=== PATIENT | female | born 1955 | race Caucasian/White ===

== ENCOUNTER 2021-06-09 07:56 | Outpatient (CLI) | payer MEDICARE, SELFPAY ==
--- NOTE | ~2021-06-09 | MM_ITS ---
EXAMINATION: MM screening [facility] BI w john HISTORY: Screening mammogram TECHNIQUE: Craniocaudal and mediolateral oblique 3-D tomosynthesis images were obtained and synthetic 2-D images were generated. CAD analysis was submitted and interpreted. COMPARISON: 07/21/2018, 07/09/2017 BREAST PARENCHYMAL COMPOSITION: There are scattered areas of fibroglandular density. FINDINGS: There is no suspicious mass, calcification, or architectural distortion to suggest malignan cy in either breast. There has been no suspicious interval change. IMPRESSION: 1. No mammographic evidence of malignancy. 2. Recommend routine screening mammography in one year. BI-RADS Category 1: Negative Reviewed, dictated and finalized at location A.
== END 2021-06-09 07:57 | disposition home or self-care (01) ==
LOC: ANHIMG 07:58
PROVIDERS: PCP Family Medicine; Visit Provider Obstetrics & Gynecology
DX: Z12.31 Encounter for screening mammogram for malignant neoplasm of breast (principal)
CPT/HCPCS: 77063; 77067

== ENCOUNTER 2022-07-31 08:06 | Outpatient (CLI) | payer MEDICARE, SELFPAY ==
--- NOTE | ~2022-07-31 | MM_ITS ---
EXAMINATION: MM screening [facility] BI w john HISTORY: Screening mammogram TECHNIQUE: Craniocaudal and mediolateral oblique 3-D tomosynthesis images were obtained and synthetic 2-D images were generated. CAD analysis was submitted and interpreted. COMPARISON: 06/09/2021, 07/21/2018, 07/28/2017 BREAST PARENCHYMAL COMPOSITION: There are scattered areas of fibroglandular density. FINDINGS: RIGHT BREAST: No suspicious mass, calcification, or architectural distortion are identified to sugges t malignancy. There has been no suspicious interval change. LEFT BREAST: An asymmetry is present in the posterior third of the lower-outer breast 7 cm from the n ipple on the craniocaudal view. IMPRESSION: 1. Left breast asymmetry. 2. Additional mammographic views and possible breast ultrasound are recommended. BI-RADS Category 0: Incomplete: Needs additional imaging evaluation. Reviewed, dictated and finalized at location A. IMPRESSION: 1. Left breast asymmetry. 2. Additional mammographic views and possible breast ultrasound are recommended . BI-RADS Category 0: Incomplete: Needs additional imaging evaluation.
== END 2022-07-31 08:07 | disposition home or self-care (01) ==
PROVIDERS: PCP Family Medicine; Visit Provider Obstetrics & Gynecology
DX: Z12.31 Encounter for screening mammogram for malignant neoplasm of breast (principal); R92.8 Other abnormal and inconclusive findings on diagnostic imaging of breast
CPT/HCPCS: 77063; 77067

== ENCOUNTER 2022-08-23 12:37 | Outpatient (CLI) | payer MEDICARE, SELFPAY ==
--- NOTE | ~2022-08-23 | MMUS_ITS ---
EXAMINATION: MM diagnostic [facility] LT w john, US breast LT complete HISTORY: Left breast mammographic asymmetry in the posterior third of lower outer breast 7 cm from th e nipple on craniocaudal view was reported on 07/31/2022 screening mammogram TECHNIQUE: Additional 3-D tomosynthesis images of the left breast were performed and synthetic 2-D im ages were generated. CAD analysis was submitted and interpreted. High resolution complete left breast ultrasound examination including all 4 quadrants and subareolar area was performed. COMPARISON: 07/31/2022 bilateral screening mammogram FINDINGS: MAMMOGRAPHIC FINDINGS: No suspicious mass or architectural distortion is detected. ULTRASOUND: No suspicious mass or shadowing, cyst or other significant sonographic abnormalities detected in the complete left breast. IMPRESSION: 1. No mammographic evidence of malignancy 2. Routine annual mammographic screening is recommended BI-RADS Category 1: Negative Reviewed, dictated and finalized at location A. IMPRESSION: 1. No mammographic evidence of malignancy 2. Routine annual mammographic screening is recommended BI-RADS Category 1: Negative
== END 2022-08-23 12:38 | disposition home or self-care (01) ==
LOC: ANHIMG 12:38
PROVIDERS: PCP Family Medicine; Visit Provider Obstetrics & Gynecology
DX: R92.8 Other abnormal and inconclusive findings on diagnostic imaging of breast (principal)
CPT/HCPCS: 76641; 77061; 77065; G0279

== ENCOUNTER 2024-05-06 08:33 | Outpatient (CLI) | payer MEDICARE, SELFPAY ==
--- NOTE | ~2024-05-06 | MM_ITS ---
EXAMINATION: MM screening [facility] BI w john HISTORY: Screening mammogram TECHNIQUE: Craniocaudal and mediolateral oblique 3-D tomosynthesis images were obtained and synthetic 2-D images were generated. CAD analysis was submitted and interpreted. COMPARISON: 08/23/2022, 07/31/2022, 06/09/2021, 07/21/2018 BREAST PARENCHYMAL COMPOSITION:Not Dense. There are scattered areas of fibroglandular density. FINDINGS: No suspicious mass, calcification, or architectural distortion are identified in either rodriguez ast to suggest malignancy. There has been no suspicious interval change. IMPRESSION: No mammographic evidence of malignancy. Recommend routine screening mammography in one year. BI-RADS Category 1: Negative Reviewed, dictated and finalized at location . RAM COORDINATOR
--- OUTSIDE RECORDS SUMMARY | 2024-05-06 08:58 | XMS_ITS | Clinical Summary ---
Author Organization [facility] Address [address] [place] [address] Care Team Providers Care Member Services Representative Name Role Phone Nishant Celaya MD Primary Care Provider [phone] Jose Cabrera MD Unavailable [phone] Source Comments [facility],non-owned Affiliates and Associated Physician Practices is amultiple site organization consisting of ambulatory clinics and hospital sitesin [place], [place], [place] and [place]. This disclosure is being madepursuant to the Care Everywhere program and may not contain all information available regarding this patient. Last updated 17.[facility] Allergies No known active allergies Medications * Be aware that medications may not be up to date on this document. Alwaysverify current medications with the patient. Medication Sig Dispensed Refills Start Date End Date Status FLUoxetine (PROZAC) 10 MG capsule fluoxetine 10 mg capsule TK ONE C PO QD Active lisinopril (PRINIVIL; ZESTRIL) 10 MG tablet at bedtime 2 01/22/2019 Active lovastatin (MEVACOR) 10 MG tablet TK 1 T PO QHS 3 11/11/2018 Active metFORMIN ER 24hr (GLUCOPHAGE XR) 500 MG tablet metformin ER 500 mg tablet,extended release 24 hr TAKE 1 TABLET BY MOUTH ONCE A DAY WITH SUPPER TIME GENERIC EQUIVALENT FOR GLUCOPHAGE XR Active metoprolol succinate XL 24hr (TOPROL XL) 50 MG tablet metoprolol succinate ER 50 mg tablet,extended release 24 hr TK 1 T PO ONCE D Active solifenacin (VESICARE) 10 MG tablet solifenacin 10 mg tablet TK 1 T PO D Active multivitamin daily tablet Take 1 tablet by mouth daily with food Active acetaminophen (TYLENOL) 325 MG tablet Take 2 tablets by mouth every 4 hours as needed Maximum allowable Acetaminophen amount = 4 Grams (4000 mg) / 24 hours. 05/29/2019 Active celecoxib (CELEBREX) 200 MG capsule Take 1 capsule by mouth 2 times daily 60 capsule 09/10/2019 Active HYDROcodone-aceta minophen (NORCO) 5-325 MG tablet Take 1 tablet by mouth every 6 hours as needed 28 tablet 09/10/2019 Active estradiol (VIVELLE-DOT) 0.025 MG/24HR patch Resume in 2weeks when ambulate better 09/10/2019 Active Active Problems Problem Noted Date Diagnosed Date Primary osteoarthritis of both knees 03/14/2019 Essential (primary) hypertension 12/23/2014 Overview (06/10/2017): As CV risk factor Generalized anxiety disorder 12/23/2014 Overview (06/10/2017): On Prozac for long time. Sensorineural hearing loss of both ears 07/14/19 14 Tinnitus 07/13/2013 Obesity 05/13/2013 Overview (06/10/2017): As cv risk factor Vitamin D deficiency 05/13/2013 Overview (06/10/2017): Possible cv risk factor Hyperlipidemia 05/13/2013 Overview (06/10/2017): As CV risk factor Sleep apnea 05/13/2013 Overview (06/10/2017): Probable as cv risk factor Cerebral infarction 05/13/2013 Overview (06/10/2017): Probable lacunes on head CT scan Dizziness and giddiness 05/13/2013 Other specified personal ris k factors, not elsewhere classified 05/13/2013 Overview (06/10/2017): As CV risk factor Family History Medical History Relation Name Comments Heart Disease Brother Status: Alive Bleeding Disorders Father Status: D eceased Cancer Mother Status: d Heart Disease Sister Status: Alive Bleeding Disorders Son Status: A live Relation Name Status Comments Brother Father Mother Sister Son Social History Tobacco Use Types Packs/Day Years Used Date Smoking Tobacco: Never Smokeless Tobacco: Never Alcohol Use Standard Drinks/Week Comments No 0 (1 standard drink = 0.6 oz pur e alcohol) Sex and Gender Information Value Date Recorded Sex Assigned at Not on file Gender Identity Not on file Sexual Orientation Not on file Last Filed Vital Signs Vital Sign Reading Time Taken Comments Blood Pressure 140/86 09/10/2019 7:44 AM CDT Pulse 69 09/10/2019 7:44 AM CDT Temperature 36.7 C (98.1 F) 09/10/2019 8:10 AM CDT Respiratory Rate 18 09/10/2019 8:10 AM CDT Oxygen Saturation 100% 09/10/2019 7:44 AM CDT Inhaled Oxygen Concentration - - Weight 101.9 kg (224 lb 9.6 oz) 09/09/2019 8:12 AM CDT Height 165.1 cm (5' 5 ) 09/09/2019 8:12 AM CDT Body Mass Index 37.38 09/09/2019 8:12 AM CDT Plan of Treatment Health Maintenance Due Date Last Done Comments BONE DENSITY TESTING 1955 COLOGUARD (AGES 45-75) - COLON CA SCREENING 1955 COLON MONITORING 1955 COLONOSCOPY - COLON CA SCREENING 1955 CT COLONOGRAPHY - COLON CA SCREENING 1955 Colorectal Cancer Screening 1955 FIT - COLON CA SCREENING 1955 FLEX SIG - COLON CA SCREENING 1955 HEPATITIS C SCREENING 09/21/1973 DTAP/TDAP/TD VACCINES (1 - Tdap) 09/25/1974 PNEUMOCOCCAL VACCINE 50+ (1 of 1 - PCV) 09/25/2005 ZOSTER VACCINE (1 of 2) 09/25/2005 MAMMOGRAM 12/14/2016 12/14/2014 SCREENING FOR DIABETES 09/09/2022 0, 09/10/2019, 09/09/2019, Additional history exists COVID-19 VACCINE (1 - 2023-25 season) 2023 INFLUENZA VACCINE (#1) 2023 DEPRESSION SCREENING 03/11/2024 Respiratory Syncytial Virus (RSV) Vaccine Pt: or over 60 yrs (1 - 1-dose 75+ series) 09/25/2030 HEPATITIS B VACCINE Aged Out No longe r eligible based on patient's age to complete this topic HIB VACCINE Aged Out No longer eligi ble based on patient's age to complete this topic HPV VACCINE Aged Out No longer eligi ble based on patient's age to complete this topic MENINGOCOCCAL (Group B) VACCINE Aged Out No longer eligible based on patient's age to complete this topic MENINGOCOCCAL VACCINE Aged Out No kimberly jacinto eligible based on patient's age to complete this topic Medical Devices Implanted Type Area Kiln Drawer Device Identifier Shelf Expiration Date Model / Serial / Lot Cmnt Bone Djo Srg Cblt 40gm Hvisc Strl Implanted:Qty: 1 on 05/28/2019 by Jose Cabrera MD at [facility] Right: Knee [employer] 12/28/2019 600-15-000 / / [id number] Cmpnt Ptlr 31mm 1 Pg Wire Ascnt Arcm Kn Implanted:Qty: 1 on 05/28/2019 by Jose Cabrera MD at [facility] Right: Knee [employer] 03/29/2024 [id number] / / [id number] Tray Tib 71mm Kn Cocr I Beam Implanted:Qty: 1 on 05/28/2019 by Jose Cabrera MD at [facility] Right: Knee [employer] 01/27/2029 [id number] / / [id number] Cmpnt Fem Kn Rt Cr Cmnt Prm Vngrd Intlk Implanted:Qty: 1 on 05/28/2019 by Jose Cabrera MD at [facility] Right: Knee [employer] 01/27/2029 [id number] / / [id number] Brng [id number] Vngrd Arcm Kn Ant Stab Implanted:Qty: 1 on 05/28/2019 by Jose Cabrera MD at [facility] Right: Knee [employer] 02/27/2024 [id number] / / [id number] Brng [id number] Vngrd Arcm Kn Ant Stab Implanted:Qty: 1 on 09/09/2019 by Jose Cabrera MD at [facility] Left: Knee [employer] 12/23/2023 [id number] / / [id number] Cmpnt Fem Kn Lt Cr Cmnt Prm Vngrd Intlk Implanted:Qty: 1 on 09/09/2019 by Jose Cabrera MD at [facility] Left: Knee [employer] 07/07/2029 [id number] / / [id number] Cmnt Bone Djo Srg Cblt 40gm Hvisc Strl Implanted:Qty: 1 on 09/09/2019 by Jose Cabrera MD at [facility] Left: Knee [employer] 06/24/2020 600-15-000 / / [id number] Tray Tib 71mm Kn Cocr I Beam Implanted:Qty: 1 on 09/09/2019 by Jose aCbrera MD at [facility] Left: Knee [employer] 05/06/2029 [id number] / / [id number] Cmpnt Ptlr 28mm 1 Pg Wire Ascnt Arcm Kn Implanted:Qty: 1 on 09/09/2019 by Jose Cabrera MD at [facility] Left: Knee [employer] 08/17/2024 [id number] / / [id number] Procedures Procedure Name Priority Date/Time Associated Diagnosis Comments BASIC METABOLIC PANEL (CALCIUM TOTAL) Routine 09/10/2019 4:35 AM CDT from Last 3 Months or Most Recently Relevant to Health Maintenance Results * BASIC METABOLIC PANEL (CALCIUM TOTAL) (09/10/2019 4:35 AM CDT) [facility] Glucose 104 70 - 105 mg/dL 09/10/2019 6:22 AM CDT [facility] Sodium 137 136 - 145 mmol/L 09/10/2019 6:22 AM CDT [facility] Potassium 4.5 3.5 - 5.1 mmol/L 09/10/2019 6:22 AM CDT [facility] Chloride 101 98 - 107 mmol/L 09/10/2019 6:22 AM CDT [facility] CO2 25 23 - 31 mmol/L 09/10/2019 6:22 AM CDT [facility] Calcium 8.7 8.4 - 10.4 mg/dL 09/10/2019 6:22 AM CDT [facility] Anion Gap 11 8 - 16 mmol/L 09/10/2019 6:22 AM CDT [facility] BUN 20 9.8 - 20.1 mg/dL 09/10/2019 6:22 AM CDT [facility] Creatinine 0.82 0.57 - 1.11 mg/dL 09/10/2019 6:22 AM CDT [facility] eGFR by MDRD >60 >60 mL/min/1.7 3m2 09/10/2019 6:22 AM CDT [facility] eGFR by MDRD >60 >60 mL/min/1.7 3m2 09/10/2019 6:22 AM CDT [facility] Blood BLOOD SPECIMEN / Unknown Venipuncture / Unknown 09/10/2019 4:35 AM CDT 09/10/2019 5:52 AM CDT Jose Cabrera MD LAB - CHEMISTRY [facility] Organization Address City/State/ZIP Co de Phone Number [facility] [address] [place] [address] from Last 3 Months or Most Recently Relevant to Health Maintenance Advance Directives Documents on File Type Date Recorded Patient [employer] anation Adv Directive/Living Will/POA 06/01/2019 5:48 PM * Full Code (Latest Code Status on File) Date Activated Date Inactivated Comments 09/09/2019 12:26 PM 09/10/2019 12:55 PM * Full Code Date Activated Date Inactivated Comments 05/28/2019 10:33 AM 05/30/2019 1:58 PM Care Teams Member Services Representative Relationship Specialty Start Date End Date Nishant Celaya MD [address] [place] [phone] PCP - General 12/23/12 [place] [id number] [facility] [address] [place] [id number] Orthopedic Surgery 01/27/19
--- OUTSIDE RECORDS SUMMARY | 2024-05-06 08:58 | XMS_ITS | Patient Health Summary ---
Author Organization [facility] Address [address] [place] [address] Care Team Providers Care Roll Slicing Machine Tender Name Role Phone Nishant Celaya MD Primary Care Provider [phone] Jose Cabrera MD Unavailable [phone] Note from [facility] [place]non-owned Affiliates and Associated Physician Practices is amultiple site organization consisting of ambulatory clinics and hospital sitesin [place], [place], [place] and [place]. This disclosure is being madepursuant to the Care Everywhere program and may not contain all information available regarding this patient. Last updated 17.[facility] Allergies No known active allergies Medications * Be aware that medications may not be up to date on this document. Alwaysverify current medications with the patient. * FLUoxetine (PROZAC) 10 MG capsule fluoxetine 10 mg capsule TK ONE C PO QD * lisinopril (PRINIVIL; ZESTRIL) 10 MG tablet(Started 01/22/2019) at bedtime 2 refills left * lovastatin (MEVACOR) 10 MG tablet(Started 11/11/2018) TK 1 T PO QHS 3 refills left * metFORMIN ER 24hr (GLUCOPHAGE XR) 500 MG tablet metformin ER 500 mg tablet,extended release 24 hr TAKE 1 TABLET BY MOUTH ONCE A DAY WITH SUPPER TIME GENERIC EQUIVALENT FOR GLUCOPHAGE XR * metoprolol succinate XL 24hr (TOPROL XL) 50 MG tablet metoprolol succinate ER 50 mg tablet,extended release 24 hr TK 1 T PO ONCE D * solifenacin (VESICARE) 10 MG tablet solifenacin 10 mg tablet TK 1 T PO D * multivitamin daily tablet Take 1 tablet by mouth daily with food * acetaminophen (TYLENOL) 325 MG tablet(Started 05/29/2019) Take 2 tablets by mouth every 4 hours as needed Maximum allowable Acetaminophen amount = 4 Grams (4000 mg) / 24 hours. * celecoxib (CELEBREX) 200 MG capsule(Started 09/10/2019) Take 1 capsule by mouth 2 times daily * HYDROcodone-acetaminophen (NORCO) 5-325 MG tablet(Started 09/10/2019) Take 1 tablet by mouth every 6 hours as needed * estradiol (VIVELLE-DOT) 0.025 MG/24HR patch(Started 09/10/2019) Resume in 2weeks when ambulate better Active Problems Problem Noted Date Diagnosed Date Primary osteoarthritis of both knees 03/14/2019 Essential (primary) hypertension 12/23/2014 Generalized anxiety disorder 12/23/2014 Sensorineural hearing loss of both ears 07/14/19 14 Tinnitus 07/13/2013 Obesity 05/13/2013 Vitamin D deficiency 05/13/2013 Hyperlipidemia 05/13/2013 Sleep apnea 05/13/2013 Cerebral infarction 05/13/2013 Dizziness and giddiness 05/13/2013 Other specified personal ris k factors, not elsewhere classified 05/13/2013 Social History Tobacco Use Types Packs/Day Years [...] Mass Index 37.38 09/09/2019 8:12 AM CDT Medical Devices Implanted Type Area Experimental Welder Device Identifier Shelf Expiration Date Model / Serial / Lot Cmnt Bone Djo Srg Cblt 40gm Hvisc Strl Implanted:Qty: 1 on 05/28/2019 by Jose Cabrera MD at [facility] Right: Knee [employer] 12/28/2019 600-15-000 / / [id number] Cmpnt Ptlr 31mm 1 Pg Wire Ascnt Arcm Kn Implanted:Qty: 1 on 05/28/2019 by Jose Cabrera MD at [facility] Right: Knee [employer] 03/29/2024 [id number] / / [id number] Tray Tib 71mm Kn Cocr I Beam Implanted:Qty: 1 on 05/28/2019 by Jose Cabrera MD at [facility] Right: Knee [employer] 01/27/2029 [id number] / / [id number] Cmpnt Fem Kn Rt Cr Cmnt Prm Vngrd Intlk Implanted:Qty: 1 on 05/28/2019 by Jose Cabrera MD at [facility] Right: Knee [employer] 01/27/2029 [id number] / / [id number] Brng [id number] Vngrd Arcm Kn Ant Stab Implanted:Qty: 1 on 05/28/2019 by Jose Cabrera MD at [facility] Right: Knee [employer] 02/27/2024 [id number] / / [id number] Brng [id number] Vngrd Arcm Kn Ant Stab Implanted:Qty: 1 on 09/09/2019 by Jose Cabrera MD at [facility] Left: Knee [employer] 12/23/2023 [id number] / / [id number] Cmpnt Fem Kn Lt Cr Cmnt Prm Vngrd Intlk Implanted:Qty: 1 on 09/09/2019 by Jose Cabrera MD at [facility] Left: Knee [employer] 07/07/2029 [id number] / / [id number] Cmnt Bone Djo Srg Cblt 40gm Hvisc Strl Implanted:Qty: 1 on 09/09/2019 by Jose Cabrera MD at [facility] Left: Knee [employer] 06/24/2020 600-15-000 / / [id number] Tray Tib 71mm Kn Cocr I Beam Implanted:Qty: 1 on 09/09/2019 by Jose Cabrera MD at [facility] Left: Knee [employer] 05/06/2029 [id number] / / [id number] Cmpnt Ptlr 28mm 1 Pg Wire Ascnt Arcm Kn Implanted:Qty: 1 on 09/09/2019 by Jose Cabrera MD at [facility] Left: Knee [employer] 08/17/2024 [id number] / / [id number] Procedures * XR KNEE LEFT 3VW(Performed 10/22/2019) Performed for Aftercare following left knee joint replacement surgery * GLUCOSE - POINT OF CARE(Performed 09/10/2019) * BASIC METABOLIC PANEL (CALCIUM TOTAL)(Performed 09/10/2019) * HGB HCT PANEL(Performed 09/10/2019) * GLUCOSE - POINT OF CARE(Performed 09/09/2019) * ENDOTRACHEAL TUBE NOTE(Performed 09/09/2019) * ARTHROPLASTY TOTAL KNEE(Performed 09/09/2019) * GLUCOSE - POINT OF CARE(Performed 09/09/2019) * SARS-COV-2 (COVID-19) IN HOUSE(Performed 09/06/2019) Performed for Preoperative examination * HEMOGLOBIN A1C(Performed 08/28/2019) Performed for Preop examination * COMPREHENSIVE METABOLIC PANEL(Performed 08/28/2019) Performed for Preop examination * CBC W AUTO DIFFERENTIAL(Performed 08/28/2019) Performed for Preop examination * XR KNEE RIGHT 3VW(Performed 08/11/2019) Performed for Chronic pain of right knee * GLUCOSE - POINT OF CARE(Performed 05/30/2019) * HGB HCT PANEL(Performed 05/30/2019) * GLUCOSE - POINT OF CARE(Performed 05/29/2019) * GLUCOSE - POINT OF CARE(Performed 05/29/2019) * GLUCOSE - POINT OF CARE(Performed 05/29/2019) * GLUCOSE - POINT OF CARE(Performed 05/29/2019) * HGB HCT PANEL(Performed 05/29/2019) * GLUCOSE - POINT OF CARE(Performed 05/28/2019) * GLUCOSE - POINT OF CARE(Performed 05/28/2019) * GLUCOSE - POINT OF CARE(Performed 05/28/2019) * LARYNGEAL MASK AIRWAY(Performed 05/28/2019) * ARTHROPLASTY TOTAL KNEE(Performed 05/28/2019) * GLUCOSE - POINT OF CARE(Performed 05/28/2019) * EKG 12-LEAD(Performed 04/22/2019) Performed for Preoperative examination * HEMOGLOBIN A1C(Performed 04/22/2019) Performed for Preoperative examination * CBC W AUTO DIFFERENTIAL(Performed 04/22/2019) Performed for Preoperative examination * COMPREHENSIVE METABOLIC PANEL(Performed 04/22/2019) Performed for Preoperative examination * CULTURE MSSA/MRSA(Performed 04/22/2019) Performed for Preoperative examination * XR KNEE BILAT 3VW(Performed 01/27/2019) Performed for Chronic pain of both knees * EKG 12-LEAD(Performed 02/03/2014) * CBC W AUTO DIFFERENTIAL(Performed 06/29/2013) * BLOOD TYPE ABO+ RH PANEL(Performed 06/29/2013) * VON WILLEBRAND FACTOR MULTIMERS(Performed 06/29/2013) * VON WILLEBRAND ANTIGEN(Performed 06/29/2013) * RISTOCETIN COFACTOR (VWF)(Performed 06/29/2013) * FACTOR VIII ASSAY(Performed 06/29/2013) * FIBRINOGEN CLAUSS(Performed 06/29/2013) * PT-INR [facility](Performed 06/29/2013) * PTT [facility](Performed 06/29/2013) * THROMBIN TIME(Performed 06/29/2013) * CBC W AUTO DIFFERENTIAL(Performed 06/29/2013) * MRI ANGIO BRAIN ARTERIAL WO CONT(Performed 05/28/2013) * MRI ANGIO NECK WO CONTRAST(Performed 05/28/2013) * ECHO COMPLETE(Performed 05/13/2013) Results * XR KNEE LEFT 3VW (10/22/2019 3:34 PM CDT) Anatomical Region Laterality Modality Lower Extremity Computed Radiogr aphy Narrative 10/22/2019 3:34 PM CDT Kelli Salguero RT(R) 11/06/2019 5:03 PM See progress notes for results Jose Cabrera MD DIAGNOSTIC IMAGING O RDERABLES * GLUCOSE - POINT OF CARE (09/10/2019 8:12 AM CDT) Only the most recent of12 resultswithin the time period is included. [facility] Glucose WB/POC 99 70 - 106 mg/dL 09/10/2019 8:18 AM CDT [facility] Specimen Type Arterial/C apillary 09/10/2019 8:18 AM CDT [facility] Blood BLOOD SPECIMEN / Unknown 09/10/2019 8:12 AM CDT 09/10/2019 8:18 AM CDT Jose Cabrera MD LAB - POINT OF CARE ORDERABLES Performing Organization Address [facility] de Phone Number [facility] [address] [place] [address] * (ABNORMAL) HGB HCT PANEL (09/10/2019 4:35 AM CDT) Only the most recent of3 resultswithin the time period is included. [facility] Hemoglobin 11.8(L) 12.0 - 15.6 gm/dL 09/10/2019 5:58 AM CDT [facility] Hematocrit 31.9(L) 35.9 - 45.5 % 09/10/2019 5:58 AM CDT [facility] Blood BLOOD SPECIMEN / Unknown Venipuncture / Unknown 09/10/2019 4:35 AM CDT 09/10/2019 5:52 AM CDT Jose Cabrera MD LAB - HEMATOLOGY ORD ERABLES Performing Organization Address City/[facility]/ZIP Co de Phone Number [facility] [id number] [place] [address] * BASIC METABOLIC PANEL (CALCIUM TOTAL) (09/10/2019 4:35 AM CDT) [facility] Glucose 104 70 - 105 mg/dL 09/10/2019 6:22 AM CDT [facility] Sodium 137 136 - 145 mmol/L 09/10/2019 6:22 AM CDT [facility] Potassium 4.5 3.5 - 5.1 mmol/L 09/10/2019 6:22 AM CDT [facility] Chloride 101 98 - 107 mmol/L 09/10/2019 6:22 AM CDT [facility] CO2 25 23 - 31 mmol/L 09/10/2019 6:22 AM CDT [facility] Calcium 8.7 8.4 - 10.4 mg/dL 09/10/2019 6:22 AM CDT [facility] Anion Gap 11 8 - 16 mmol/L 09/10/2019 6:22 AM CDT [facility] BUN 20 9.8 - 20.1 mg/dL 09/10/2019 6:22 AM CDT [facility] Creatinine 0.82 0.57 - 1.11 mg/dL 09/10/2019 6:22 AM CDT [facility] eGFR by MDRD >60 >60 mL/min/1.7 3m2 09/10/2019 6:22 AM CDT [facility] eGFR by MDRD >60 >60 mL/min/1.7 3m2 09/10/2019 6:22 AM CDT [facility] Blood BLOOD SPECIMEN / Unknown Venipuncture / Unknown 09/10/2019 4:35 AM CDT 09/10/2019 5:52 AM CDT Jose Cabrera MD LAB - CHEMISTRY [facility] [place] [facility] [address] [place] [address] * ETT LINE PERFORMABLE (09/09/2019 9:22 AM CDT) Narrative Mehdi Pascual APRN-CRNA - 09/09/2019 9:22 AM CDT Mehdi Pascual APRN-CRNA 09/09/2019 10:31 AM Endotracheal Tube Placement: Patient Location: OR. Intubation Event Date/Time: 09/09/2019 9:02 AM Procedure: intubation ([id number]). Procedure Section: Sedation: under general anesthesia. Indications for Airway Management: anesthesia Procedure pretreatments used? Nursing documentation on the [facility] Procedure Pretreatments (manual): 100% O2 Induction: standard IV Patient Position: sniffing Mask Ventilation: easy. Blade Type: Sixto Blade Size: 4 Laryngoscopy View: grade 1 (full cords) Intubation Adjuncts: stylet and cricoid pressure Tube: endotracheal tube Placement: oral Tube type: cuff - inflated Tube Size (MM): 7 Depth of Insertion (CM): 21 Measured From: lips Cuff volume (mL): 10 Cuff Inflated With: air Number of Attempts: 1. Placement Verified By: direct visualization and CO2 monitor Tube secured with: adhesive tape. Difficult Airway? No. Procedure Start Time: 09/09/2019 9:02 AM. Staff Section Anesthesia Provider: Mehdi Pascual, ADELA-SCAR, Performed the procedure Dorian Claros DO GENERAL ANESTHESIA O ARLETTE * SARS-COV-2 (COVID-19) IN HOUSE (09/06/2019 3:00 PM CDT) COVID-19 PCR Not detected Not detected, Invalid 09/07/2019 11:31 AM CDT [facility] Microbiology SPECIMEN FROM NASOPHARYNGEAL STRUCTURE / Unknown Collection / Unknown 09/06/2019 3:00 PM CDT 09/06/2019 11:23 PM CDT Narrative [facility] - 09/07/2019 11:31 AM CDT This nucleic acid amplification assay performance was validated by [facility]. This test has been authorized by the Food and Drug administration (FDA)under an Emergency Use Authorization (EUA). This test has been validated in accordance with the FDA's guidance document Policy for Diagnostic Testing in Laboratories Certified to perform High Complexity Testing under CLIA prior to Emergency Use Authorization for Coronavirus Disease-2019 during the Public Health Emergency issued on May 09, 2019. FDA independent review of this validation is pending. This test is only authorized for the duration of time the declaration that circumstances exist justifying the authorization of emergency use of in vitro diagnostic tests for detection of SARS-CoV-2 virus and/or diagnosis of COVID-19 infection under section 564(b)(1) of the Act, 21 U.S.C 360bbb-3 (b)(1), unless the authorization is terminated or revoked sooner. Jose Cabrera MD LAB - MICROBIOLOGY O ARLETTE [facility] [address] [place] [address], [facility] [phone] * HEMOGLOBIN A1C (08/28/2019 2:52 PM CDT) Only the most recent of2 resultswithin the time period is included. Hemoglobin A1c 5.5 4.2 - 5.6 % 08/28/2019 3:20 PM CDT [facility] Estimated Average Glucose 111 mg/dL 08/28/2019 3:20 PM CDT [facility] Blood BLOOD SPECIMEN / Unknown Venipuncture / Unknown 08/28/2019 2:52 PM CDT 08/28/2019 3:02 PM CDT Narrative [facility] - 08/28/2019 3:20 PM CDT The following cutoff levels are recommended by [place] [employer]. A1c > 6.5% : considered as diabetes if two separate tests >6.5% or in an appropriate clinical setting. A1c 5.7% - 6.4% : considered as prediabetes (suggest increased risk for diabetes and cardiovascular disease) Control target level: Should be individualized. < 7 for general (non-) , < 8% less stringent goal, < 6.5 more stringent goal. Hemoglobin A1c measurements are used as an aid in the diagnosis of diabetic mellitus, as an aid to identify patients who may be at the risk for developing diabetic mellitus, and for the monitoring long-term blood glucose control in individuals with diabetes mellitus. This test should not replace glucose testing for patients with Type 1 diabetes, pediatric patients, or women. Falsely low HbA1c results may be observed in patients with clinical conditions that shorten erythrocyte life span or decrease mean erythrocyte age such as the presence of unstable hemoglobin variants, elevated hemoglobin F level or other causes of hemolytic anemia . HbA1c may not accurately reflect glycemic control when clinical conditions that affect erythrocyte survival are present. Severe Iron deficiency anemia may yield falsely high results. Hemoglobin A1c assay should not be used to diagnose or monitor diabetes in patients with malignancy, recent blood transfusion, chronic kidney or liver disease. This method may yield falsely low results when hemoglobin (HbF) exceeds 5% in the specimen. Selene Hernandez ACCOUNT DIRECTOR-DIRECTOR OF CHILD WELFARE SERVICES LAB - CHEM ISTRY ORDERABLES [facility] [address] [place] [address] * CBC W AUTO DIFFERENTIAL (08/28/2019 2:52 PM CDT) Only the most recent of4 resultswithin the time period is included. WBC 9.6 4.4 - 10.7 x10E9/L 08/28/2019 3:06 PM CDT [facility] WBC Corrected 08/28/2019 3:06 PM CDT [facility] RBC 4.75 3.80 - 5.20 x10E12/L 08/28/2019 3:06 PM CDT [facility] Hemoglobin 13.4 12.0 - 15.6 gm/dL 08/28/2019 3:06 PM CDT [facility] Hematocrit 41.5 35.9 - 45.5 % 08/28/2019 3:06 PM CDT [facility] MCV 87.4 80.7 - 98.3 fl 08/28/2019 3:06 PM CDT [facility] MCH 28.2 26.7 - 34.0 pg 08/28/2019 3:06 PM CDT [facility] MCHC 32.3 30.8 - 35.9 gm/dL 08/28/2019 3:06 PM CDT [facility] Platelet Count 310 153 - 416 x10E9/L 08/28/2019 3:06 PM CDT [facility] RDW-CV 13.0 12.1 - 14.9 % 08/28/2019 3:06 PM CDT [facility] MPV 9.9 9.4 - 12.9 fl 08/28/2019 3:06 PM CDT [facility] Neutrophils % 65.2 44.0 - 73.0 % 08/28/2019 3:06 PM CDT [facility] Lymphocytes % 22.6 20.0 - 43.0 % 08/28/2019 3:06 PM CDT [facility] Monocytes % 9.7 5.0 - 13.0 % 08/28/2019 3:06 PM CDT [facility] Eosinophils % 1.5 0.0 - 6.0 % 08/28/2019 3:06 PM CDT [facility] Basophils % 0.6 0.0 - 2.0 % 08/28/2019 3:06 PM CDT [facility] Immature Granulocytes 0.4 0 - 1 % 08/28/2019 3:06 PM CDT [facility] Neutrophil Absolute 6.22 2.01 - 7.14 x10E9/L 08/28/2019 3:06 PM CDT [facility] Lymphocytes Absolute 2.16 1.07 - 3.94 x10E9/L 08/28/2019 3:06 PM CDT [facility] Monocytes Absolute 0.93 0.26 - 1.07 x10E9/L 08/28/2019 3:06 PM CDT [facility] Eosinophils Absolute 0.14 0 - 0.47 x10E9/L 08/28/2019 3:06 PM CDT [facility] Basophils Absolute 0.06 0 - 0.08 x10E9/L 08/28/2019 3:06 PM CDT [facility] Immature Granulocytes Absolute 0.04 0.00 - 0.06 x10E9/L 08/28/2019 3:06 PM CDT [facility] nRBC Auto 0 /100 WBC 08/28/2019 3:06 PM CDT [facility] Blood BLOOD SPECIMEN / Unknown Venipuncture / Unknown 08/28/2019 2:52 PM CDT 08/28/2019 3:03 PM CDT Selene Hernandez ACCOUNT DIRECTOR-DIRECTOR OF CHILD WELFARE SERVICES LAB - ZEB TOLOGY ORDERABLES [facility] [address] [place] [address] * (ABNORMAL) COMPREHENSIVE METABOLIC PANEL (08/28/2019 2:52 PM CDT) Only the most recent of2 resultswithin the time period is included. [facility] Glucose 93 70 - 105 mg/dL 08/28/2019 3:22 PM CDT [facility] Sodium 138 136 - 145 mmol/L 08/28/2019 3:22 PM CDT [facility] Potassium 4.1 3.5 - 5.1 mmol/L 08/28/2019 3:22 PM CDT [facility] Chloride 104 98 - 107 mmol/L 08/28/2019 3:22 PM CDT [facility] CO2 28 23 - 31 mmol/L 08/28/2019 3:22 PM CDT [facility] Calcium 9.6 8.4 - 10.4 mg/dL 08/28/2019 3:22 PM CDT [facility] Anion Gap 6(L) 8 - 16 mmol/L 08/28/2019 3:22 PM CDT [facility] BUN 19 9.8 - 20.1 mg/dL 08/28/2019 3:22 PM CDT [facility] Creatinine 0.91 0.57 - 1.11 mg/dL 08/28/2019 3:22 PM CDT [facility] Alkaline Phosphatase 89 40 - 150 U/L 08/28/2019 3:22 PM CDT [facility] ALT 41 0 - 61 U/L 08/28/2019 3:22 PM CDT [facility] AST 28 5 - 34 U/L 08/28/2019 3:22 PM CDT [facility] Protein Total 6.9 6.4 - 8.3 gm/dL 08/28/2019 3:22 PM CDT [facility] Albumin 4.2 3.2 - 4.6 gm/dL 08/28/2019 3:22 PM CDT [facility] Bilirubin Total 0.3 0.2 - 1.0 mg/dL 08/28/2019 3:22 PM CDT [facility] eGFR by MDRD >60 >60 mL/min/1.7 3m2 08/28/2019 3:22 PM CDT [facility] eGFR by MDRD >60 >60 mL/min/1.7 3m2 08/28/2019 3:22 PM CDT [facility] Blood BLOOD SPECIMEN / Unknown Venipuncture / Unknown 08/28/2019 2:52 PM CDT 08/28/2019 3:02 PM CDT Selene Hernandez ACCOUNT DIRECTOR-DIRECTOR OF CHILD WELFARE SERVICES LAB - CHEM ISTRY ORDERABLES [facility] [address] [place] [address] * XR KNEE RIGHT 3VW (08/11/2019 3:43 PM CDT) Anatomical Region Laterality Modality Lower Extremity Computed Radiogr aphy Narrative 08/11/2019 3:41 PM CDT Kelli Salguero, RT(R) 08/14/2019 4:37 PM See progress notes for results Jose Cabrera MD DIAGNOSTIC IMAGING O ARLETTE * LARYNGEAL MASK AIRWAY (05/28/2019 7:52 AM CDT) Narrative Lexy Garcia DO - 05/28/2019 7:52 AM CDT Mehdi Pascual APRN-CRNA 05/28/2019 7:53 AM LMA Placement Procedure/LDA Note: Patient Location: OR. Procedure: LMA. Pretreatment: 100% O2 Induction: standard IV Patient position: supine. Mask Ventilation: not attempted Type: LMA Size: 4 Number of Attempts: 1. Placement verified by: CO2 monitor Staff Section Anesthesia Provider: Mehdi Pascual APRN-CRNA, Performed the procedure Lexy Garcia DO GENERAL ANESTHESIA O GRACIEERACHARLES * EKG 12-LEAD (04/22/2019 9:03 AM CAMP ADVISOR) Only the most recent of2 resultswithin the time period is included. Ventricular Rate 71 BPM [facility] Atrial Rate 71 BPM [facility] P-R Interval 182 ms [facility] QRS Duration ms 102 ms [facility] Q-T Interval ms 396 ms [facility] QTC Calculation (Bezet) 430 ms [facility] Calculated P [place] 55 degrees [facility] Calculated R [place] -11 degrees [facility] Calculated T [place] 32 degrees [facility] Interpretation EKG Normal sinus rhythm Moderate voltage criteria for LVH, may be normal variant Borderline ECG No previous ECGs available Confirmed by LISA VALERA MD ([id number]) on 04/23/2019 12:30:46 PM [facility] 04/22/2019 9:03 AM CAMP ADVISOR 04/23/2019 12:30 PM CAMP ADVISOR Dorian Claros DO ECG ORDERABLES [facility] * CULTURE MSSA/MRSA (04/22/2019 7:45 AM CAMP ADVISOR) Culture Negative for Staphylococcus aureus (MRSA/MSSA) 04/23/2019 11:01 AM CAMP ADVISOR [facility] Microbiology SPECIMEN FROM NASAL FOSSAE / Unknown Collection / Unknown 04/22/2019 7:45 AM CAMP ADVISOR 04/22/2019 7:59 AM CAMP ADVISOR Selene Hernandez APRN-DIRECTOR OF CHILD WELFARE SERVICES LAB - MICR OBIOLOGY ORDERABLES [facility] [address] [place], [place] [address] [phone] * XR KNEE BILAT 3VW (01/27/2019 3:11 PM CAMP ADVISOR) Anatomical Region Laterality Modality Lower Extremity Computed Radiogr aphy Narrative 01/27/2019 3:12 PM CAMP ADVISOR Kelli Salguero, RT(R) 01/28/2019 4:42 PM See progress notes for results Jose Cabrera MD DIAGNOSTIC IMAGING O RDERABLES * PTT [facility] (06/29/2013 9:17 AM CDT) APTT 35.6 23.0 - 38.4 Seconds [facility] Comment:Suggested therapeuti c range for full dose I.V. heparin therapy for venous thromboembolism is 66.0-91.0 seconds. Blood specimen (specimen) BLOOD SPECIMEN / Unknown 06/29/2013 9:17 AM CDT 06/29/2013 9:47 AM CDT [facility] - 06/29/2013 12:35 PM CDT Is patient on Heparin, Argatroban or Dabigatran?->N Karlee Pantoja ACCOUNT DIRECTOR-DIRECTOR OF CHILD WELFARE SERVICES LAB - COAGULATION ORDERABLES [address] [phone] * PT-INR [facility] (06/29/2013 9:17 AM CDT) PT 13.2 12.1 - 14.8 Seconds [facility] INR 1.0 See Comment [facility] Blood specimen (specimen) BLOOD SPECIMEN / Unknown 06/29/2013 9:17 AM CDT 06/29/2013 9:47 AM CDT Narrative [facility] - 06/29/2013 12:35 PM CDT Is patient on Heparin, Argatroban or Dabigatran?->N Karlee Golabe [facility] - CO[facility] ORDERABLES [address] [phone] * FIBRINOGEN CLAUSS (06/29/2013 9:17 AM CDT) Fibrinogen Clauss 392 170 - 400 mg/dL [facility] Blood specimen (specimen) BLOOD SPECIMEN / Unknown 06/29/2013 9:17 AM CDT 06/29/2013 9:47 AM CDT [facility] - COAGULATION ORDERABLES Performing Organization Address [facility] Co de Phone Number [address] [phone] * VON WILLEBRAND FACTOR MULTIMERS (06/29/2013 9:17 AM CDT) Pathologist [facility] von Willebrand Antigen for Multimers Comment [facility] ([place]) Comment: VWF multimer analysis shows a normal pattern and distribution of bands. This is the pattern of multimers that occurs in both normal individuals and those with Type 1 VW Disease as well as in both type 2M and 2N VW disease. No additional results available for further interpretation. Blood specimen (specimen) BLOOD SPECIMEN / Unknown 06/29/2013 9:17 AM CDT 06/29/2013 9:47 AM CDT Narrative [facility] ([place]) - 07/06/2013 7:08 PM CDT Performed at: [facility] [address] [id number] [employer] Bug[employer] Operator: Angela Estrada MD, Phone: [phone] Karlee Adamsabe [facility] - HEMATOLOGY ORDERABLES [place] [facility] * VON WILLEBRAND ANTIGEN (06/29/2013 9:17 AM CDT) von Willebrand Factor Antigen 77 50 - 280 U/dL [facility] Comment: Biologic population variability within the Von Willebrand Factor Antigen reference range is strongly correlated with ABO blood group phenotype. Blood group specific ranges are as follows: BLOOD TYPE O: vWF Antigen = 50-170 BLOOD TYPE A: vWF Antigen = 60-260 BLOOD TYPE B AND AB COMBINED: vWF Antigen = 90-280 Blood specimen (specimen) BLOOD SPECIMEN / Unknown 06/29/2013 9:17 AM CDT 06/29/2013 9:47 AM CDT Karlee Pantoja ACCOUNT DIRECTOR-DIRECTOR OF CHILD WELFARE SERVICES LAB - COAGULATION ORDERABLES [address] [phone] * FACTOR VIII RISTOCETIN COFACTOR (06/29/2013 9:17 AM CDT) Ristocetin Cofactor 69 50 - 210 U/dL [facility] Comment: Biologic population variability within the Ristocetin CoFactor reference range is strongly correlated with ABO blood group phenotype. Blood group specific ranges are as follows: BLOOD TYPE O: Ristocetin CoFactor = 50-162 BLOOD TYPE A: Ristocetin CoFactor = 70-185 BLOOD TYPE B AND AB COMBINED: Ristocetin CoFactor = 80-210 The diagnosis of Von Willebrand Disease (VWD), particularly the milder forms, is difficult because so-called screening tests (Bleeding Time, APTT) are frequently normal. Even the results of more specific tests, such as Factor VIII, VWF-Antigen and Ristocetin Co-Factor Activity, may at times be normal because they are affected by a large number of factors and conditions. These include ABO Blood Group Phenotype, Estrogen-Oral contraceptive use, , use of aspirin and other medications, stress, etc. Thus, the diagnosis of mild VWD cannot be reliably excluded on the basis of a single set of normal results for VWF-Antigen and Ristocetin Co-Factor Activity. If the patient has a personal and/or family history of recurrent abnormal bleeding, comprehensive laboratory evaluation with subtyping should be considered since this has important implications for patient management. Blood specimen (specimen) BLOOD SPECIMEN / Unknown 06/29/2013 9:17 AM CDT 06/29/2013 9:47 AM CDT Karlee Pantoja [facility] - COAGULATION ORDERABLES [address] [phone] * BLOOD TYPE ABO+ RH PANEL (06/29/2013 9:17 AM CDT) Interpretation ABO/Rh Patient O POS [facility] Blood specimen (specimen) BLOOD SPECIMEN / Unknown 06/29/2013 9:17 AM CDT 06/29/2013 10:00 AM CDT Karlee Pantoja [facility] - BLOOD BANK ORDERABLES Performing Organization Address [facility] Co de Phone Number [address] [phone] * FACTOR VIII ASSAY (06/29/2013 9:17 AM CDT) Factor VIII Activity 95 45 - 225 U/dL [facility] Comment: Biologic population variability within the Factor VIII Activity reference range is strongly correlated with ABO blood group phenotype. Blood group specific ranges are as follows: BLOOD TYPE O: Factor VIII = 45-180 BLOOD TYPE A: Factor VIII = 60-200 BLOOD TYPE B AND AB COMBINED: Factor VIII = 80-225 Blood specimen (specimen) BLOOD SPECIMEN / Unknown 06/29/2013 9:17 AM CDT 06/29/2013 9:47 AM CDT Narrative [facility] - 06/29/2013 12:54 PM CDT Is this a pre or post-infusion?->NA Karlee Pantoja [facility] - COAGULATION ORDERABLES Performing Organization Address [facility]/ZIP Co de Phone Number [address] [phone] * THROMBIN TIME (06/29/2013 9:17 AM CDT) Pathologist [facility] Thrombin Time 15.9 12.8 - 19.2 Seconds [facility] Blood specimen (specimen) BLOOD SPECIMEN / Unknown 06/29/2013 9:17 AM CDT 06/29/2013 9:47 AM CDT Karlee Pantoja ACCOUNT DIRECTOR-DIRECTOR OF CHILD WELFARE SERVICES LAB - COAGULATION ORDERABLES [facility] [address] [place] [address] * MRI ANGIO BRAIN ARTERIAL WO CONT (05/28/2013 12:06 PM CDT) Anatomical Region Laterality Modality Head Other Impressions 05/28/2013 1:30 PM CDT IMPRESSION: 1. Normal MR angiogram of the [place]. 2. Essentially normal MR angiogram of the neck allowing for motion artifact. This report was approved by Keke Carbajal M.D. on 05/28/2013 1:11 PM . I, Dr. DREA OLIVER M.D. have personally reviewed and interpreted this examination/study. This report was electronically signed by DREA OLIVER M.D. on 05/28/2013 1:30 PM . Narrative 05/28/2013 1:30 PM CDT EXAMINATION: 1. Magnetic resonance angiography (MRA) of the head without contrast 2. MRA of the neck without contrast HISTORY: Acute attack of vertigo 6-8 months ago. Multiple CV risk factors. 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 FINDINGS: No prior study is available for comparison. Angiographic findings: Images are degraded due to motion artifact. The visualized aortic arch origin of the carotid and vertebral arteries are not included in the qrfgi-gt-sbcj. The innominate artery and both subclavian arteries appear normal. The common carotid arteries and carotid bifurcations appear normal. The cervical internal carotid and vertebral arteries appear normal. The distal internal carotid arteries appear normal. The anterior and middle cerebral arteries appear normal. The distal vertebral arteries appear normal. The basilar artery and posterior cerebral arteries appear normal. No aneurysms or intracranial stenoses are identified. Procedure Note Drea Oliver MD - 06/08/2017 EXAMINATION: 1. Magnetic resonance angiography (MRA) of the head without contrast 2. MRA of the neck without contrast HISTORY: Acute attack of vertigo 6-8 months ago. 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 FINDINGS: No prior study is available for comparison. Angiographic findings: Images are degraded due to motion artifact. The visualized aortic archorigin of the carotid and vertebral arteries are not included in bnqdulhu-yg-ictr. The innominate artery and both subclavian arteries appearnormal. The common carotid arteries and carotid bifurcations appear normal. The cervical internal carotid andvertebral arteries appear normal. The distal internal carotid arteries appear normal. The anterior andmiddle cerebral arteries appear normal. The distal vertebral arteriesappear normal. The basilar artery and posterior cerebral arteries appearnormal. No aneurysms or intracranial stenoses are identified. IMPRESSION IMPRESSION: 1. Normal MR angiogram of the [place]. 2. Essentially normal MR angiogram of the neck allowing for motionartifact. This report was approved by Keke Carbajal M.D. on 05/28/2013 1:[address] DREA Mckee M.D. have personally reviewed and interpreted thisexamination/study. This report was electronically signed by DREA OLIVER M.D. on 05/28/20131:30 PM . Jerald Toussaint MD MR ORDERABLES * MRI ANGIO NECK WO CONTRAST (05/28/2013 12:06 PM CDT) Anatomical Region Laterality Modality Head Other Impressions 05/28/2013 1:30 PM CDT IMPRESSION: 1. Normal MR angiogram of the [place]. 2. Essentially normal MR angiogram of the neck allowing for motion artifact. This report was approved by Keke Carbajal M.D. on 05/28/2013 1:[address] DREA Mckee M.D. have personally reviewed and interpreted this examination/study. This report was electronically signed by DREA OLIVER M.D. on 05/28/2013 1:30 PM . Narrative 05/28/2013 1:30 PM CDT EXAMINATION: 1. Magnetic resonance angiography (MRA) of the head without contrast 2. MRA of the neck without contrast HISTORY: Acute attack of vertigo 6-8 months ago. Multiple CV risk factors. 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 FINDINGS: No prior study is available for comparison. Angiographic findings: Images are degraded due to motion artifact. The visualized aortic arch origin of the carotid and vertebral arteries are not included in the unlzo-lm-ljfi. The innominate artery and both subclavian arteries appear normal. The common carotid arteries and carotid bifurcations appear normal. The cervical internal carotid and vertebral arteries appear normal. The distal internal carotid arteries appear normal. The anterior and middle cerebral arteries appear normal. The distal vertebral arteries appear normal. The basilar artery and posterior cerebral arteries appear normal. No aneurysms or intracranial stenoses are identified. Procedure Note Drea Oliver MD - 06/08/2017 EXAMINATION: 1. Magnetic resonance angiography (MRA) of the head without contrast 2. MRA of the neck without contrast HISTORY: Acute attack of vertigo 6-8 months ago. Multiple CV risk factors.Small vessel strokes reported on outside head CT scan TECHNIQUE: MRA of the hvsbzu-tf-Hygjva and the neck was performed using hyjqz-ee-nbetiu technique without contrast. FINDINGS: No prior study is available for comparison. Angiographic findings: Images are degraded due to motion artifact. The visualized aortic archorigin of the carotid and vertebral arteries are not included in xhzysoby-yn-ngxp. The innominate artery and both subclavian arteries appearnormal. The common carotid arteries and carotid bifurcations appear normal. The cervical internal carotid andvertebral arteries appear normal. The distal internal carotid arteries appear normal. The anterior andmiddle cerebral arteries appear normal. The distal vertebral arteriesappear normal. The basilar artery and posterior cerebral arteries appearnormal. No aneurysms or intracranial stenoses are identified. IMPRESSION IMPRESSION: 1. Normal MR angiogram of the [place]. 2. Essentially normal MR angiogram of the neck allowing for motionartifact. This report was approved by Keke Carbajal M.D. on 05/28/2013 1:11 PM . I, Dr. YIHUA OLIVER, M.D. have personally reviewed and interpreted thisexamination/study. This report was electronically signed by DREA OLIVER M.D. on 05/28/20131:30 PM . Jerald Toussaint MD MR ORDERABLES * ECHO W DOPPLER AND COLOR FLOW (05/13/2013 12:00 AM CAMP ADVISOR) Anatomical Region Laterality Modality Other 05/13/2013 Jerald Toussaint MD ECHOCARDIOGRAPHY RAD IANT Care Teams Roll Slicing Machine Tender Relationship Specialty Start Date End Date Nishant Celaya MD [address] [place] [phone] PCP - General 12/23/12 [place] [id number] [address] Orthopedic Surgery 01/27/19
--- OUTSIDE RECORDS SUMMARY | 2024-05-06 08:58 | XMS_ITS | Referral Summary ---
Author Organization [facility] Address [address] [place] [address] Care Team Providers Care Nanotechnology Technician Name Role Phone Nishant Celaya MD Primary Care Provider [phone] Jose Cabrera MD Unavailable [phone] Source Comments [facility],non-owned Affiliates and Associated Physician Practices is amultiple site organization consisting of ambulatory clinics and hospital sitesin [place], [place], [place] and [place]. This disclosure is being madepursuant to the Care Everywhere program and may not contain all information available regarding this patient. Last updated 17.[facility] Allergies No known active allergies Medications * [...] 05/13/2013 Overview (06/10/2017): As CV risk factor Social History Tobacco Use Types Packs/Day Years [...] Mass Index 37.38 09/09/2019 8:12 AM CDT Functional Status Functional Status Response Date of Assess ment Is person deaf or have serious hearing difficult y? No 09/09/2019 Is person blind or have serious difficulty seein g? No 09/09/2019 Does person have serious dif ficulty walking/climbing stairs? Yes 09/09/2019 Does person have difficulty dressing/bathing? No 09/09/2019 Does person have difficulty doing errands alone? No 09/09/2019 Cognitive Status Response Date of Assessm ent Does person have difficulty concentrating/remembering/making decisions? No 09/09/2019 Plan of Treatment Not on file Medical Devices Implanted Type Area Tape Duplicator Device Identifier Shelf Expiration Date Model / Serial / Lot Cmnt Bone Djo Srg Cblt 40gm Hvisc Strl Implanted:Qty: 1 on 05/28/2019 by Jose Cabrera MD at [facility] Right: Knee [employer] 12/28/2019 600-15-000 / / [id number] Cmpnt Ptlr 31mm 1 Pg Wire Ascnt Arcm Kn Implanted:Qty: 1 on 05/28/2019 by Jose Cabrera MD at [facility] Right: Knee [employer] 03/29/2024 [id number] / / [id number] Tray Tib 71mm Kn Cocr I Beam Implanted:Qty: 1 on 05/28/2019 by Jose Cabrera MD at [facility] Right: Knee [employer] 01/27/2029 [id number] / / [id number] Cmpnt Fem Kn Rt Cr Cmnt Prm Vngrd Intlk Implanted:Qty: 1 on 05/28/2019 by Jose Cabrera MD at [facility] Right: Knee [employer] 01/27/2029 [id number] / / [id number] Brng [id number] Vngrd Arcm Kn Ant Stab Implanted:Qty: 1 on 05/28/2019 by Jose Cabrera MD at [facility] Right: Knee [employer] 02/27/2024 [id number] / / [id number] Brng [id number] Vngrd Arcm Kn Ant Stab Implanted:Qty: 1 on 09/09/2019 by Jose Cabrera MD at [facility] Left: Knee [employer] 12/23/2023 [id number] / / [id number] Cmpnt Fem Kn Lt Cr Cmnt Prm Vngrd Intlk Implanted:Qty: 1 on 09/09/2019 by Jose Cabrera MD at [facility] Left: Knee [employer] 07/07/2029 [id number] / / [id number] Cmnt Bone Djo Srg Cblt 40gm Hvisc Strl Implanted:Qty: 1 on 09/09/2019 by Jose Cabrera MD at [facility] Left: Knee [employer] 06/24/2020 600-15-000 / / [id number] Tray Tib 71mm Kn Cocr I Beam Implanted:Qty: 1 on 09/09/2019 by Jose Cabrera MD at [facility] Left: Knee [employer] 05/06/2029 [id number] / / [id number] Cmpnt Ptlr 28mm 1 Pg Wire Ascnt Arcm Kn Implanted:Qty: 1 on 09/09/2019 by Jose Cabrera MD at [facility] Left: Knee [employer] 08/17/2024 [id number] / / [id number] Procedures Procedure Name Priority Date/Time Associated Diagnosis Comments BASIC METABOLIC PANEL (CALCIUM TOTAL) Routine 09/10/2019 4:35 AM CDT from Last 3 Months or Most Recently Relevant to Health Maintenance Results * BASIC METABOLIC PANEL (CALCIUM TOTAL) (09/10/2019 4:35 AM CDT) [facility] Glucose 104 70 - 105 mg/dL 09/10/2019 6:22 AM CDT [facility] Sodium 137 136 - 145 mmol/L 09/10/2019 6:22 AM CDT [facility] Potassium 4.5 3.5 - 5.1 mmol/L 09/10/2019 6:22 AM CDT [facility] Chloride 101 98 - 107 mmol/L 09/10/2019 6:22 AM CDT [facility] CO2 25 23 - 31 mmol/L 09/10/2019 6:22 AM CDT [facility] Calcium 8.7 8.4 - 10.4 mg/dL 09/10/2019 6:22 AM CDT [facility] Anion Gap 11 8 - 16 mmol/L 09/10/2019 6:22 AM CDT [facility] BUN 20 9.8 - 20.1 mg/dL 09/10/2019 6:22 AM CDT [facility] Creatinine 0.82 0.57 - 1.11 mg/dL 09/10/2019 6:22 AM CDT [facility] eGFR by MDRD >60 >60 mL/min/1.7 3m2 09/10/2019 6:22 AM CDT [facility] eGFR by MDRD >60 >60 mL/min/1.7 3m2 09/10/2019 6:22 AM CDT [facility] Blood BLOOD SPECIMEN / Unknown Venipuncture / Unknown 09/10/2019 4:35 AM CDT 09/10/2019 5:52 AM CDT Jose Cabrera MD LAB - CHEMISTRY [facility] Organization Address City/State/ZIP Co de Phone Number [facility] [address] [place] [address] from Last 3 Months or Most Recently Relevant to Health Maintenance Advance Directives Documents on File Type Date Recorded Patient Marine Underwriter Expl anation Adv Directive/Living Will/POA 06/01/2019 5:48 PM * Full Code (Latest Code Status on File) Date Activated Date Inactivated Comments 09/09/2019 12:26 PM 09/10/2019 12:55 PM * Full Code Date Activated Date Inactivated Comments 05/28/2019 10:33 AM 05/30/2019 1:58 PM Care Teams Nanotechnology Technician Relationship Specialty Start Date End Date Nishant Celaya MD [facility] [place] [address] PCP - General 12/23/12 [place] [address] [place] [address] Orthopedic Surgery 01/27/19
--- OUTSIDE RECORDS SUMMARY | 2024-05-06 08:58 | XMS_ITS | Continuity of Care Document ---
Author Organization [facility] Address [address] [place] [address] Phone Care Team Providers Care Rural Mail Carrier Name Role Phone Shaq Jackson MD Unavailable Unavailable Procedures Procedure Date Office/outpatient Visit, Est Post-op Follow-up Visit Revision Of Eyelid Form Skin Pedicle Flap Office Consultation Office Consultation Advance Directives Directive Yes / No Effective Date File Name No Information Encounters Encounter Description Practice Location Reason(s) For Visit Diagnoses Date Provider Providers Copied on Encounter Office/outpati ent Visit, Est [facility], [address] [place] [address] [address], [place], [place], [id number], [place] tel:[phone] SEC Stephanie Jean-Baptiste No Information [address] [facility], [facility] [place], [id number], [place]. tel:[phone] [facility], [address] [place] [address] [address], [place], [place], [id number], [place] tel:[phone] SEC Stephanie Jean-Baptiste No Information 200 [address], [facility] [place], [id number], [place]. tel:[phone] [facility], [address] [place] [address] [address], [place], [place], [address], [place] tel:[phone] [facility] No Information 9 [address] [facility], [address] [place], [address], [place]. tel:[phone] Referring Provider: Froylan huynh, [address] [place] [address], [address]. tel:[phone] Office Consultation [facility], [address], [place], [place], [address], [place] tel:[phone] SEC [facility] [address] No Information 9 [address] [facility], [facility] [place], [id number], [place]. tel:[phone] Referring Provider: Froylan huynh, [facility] [address], [facility]. tel:[phone] [facility]ation [facility], [address] [facility] [address], [place], [place], [id number], [place] tel:[phone] SEC [facility] No Information 9 Marielle Galeano. [address] [facility] [address], [address], [place]. tel:[phone] Referring Provider: Elaine Gomez OD, [address] [place], [address]. tel:[phone] Family History Family Member Type Diagnosis Age At Onset No Information Payers Payer name Insurance type Covered constitution party ID Authoriza tion(s) No Information Social History Type Description Quantity Date Captured Comments Sex Female Smoking Status No Information Chief Complaint And Reason For Visit No Information Reason For Referral Reason For Referral No Information History Of Present Illness Encounter Date Complaint History Of Prese nt Illness No Information Functional Status Date Functional Assessmen t No Information Instructions Date Instruction Additional Infor mation No Information Assessments Type Assessment Date No Information Patient Care Teams Name Effective Dates (start - stop) Status Members No Information
== END 2024-05-06 08:34 | disposition home or self-care (01) ==
LOC: ANHIMG 08:36
PROVIDERS: PCP Family Medicine; Visit Provider Nurse Practitioner Family
DX: Z12.31 Encounter for screening mammogram for malignant neoplasm of breast (principal)
CPT/HCPCS: 77063; 77067

== ENCOUNTER 2024-05-29 10:19 | Outpatient (CLI) | payer MEDICARE, SELFPAY ==
--- OUTSIDE RECORDS SUMMARY | 2024-05-29 11:23 | XMS_ITS | Continuity of Care Document ---
Author Organization [facility] Address [address] [place] [address] Phone Care Team Providers Care Insulation Blanket Maker Name Role Phone Shaq Jackson MD Unavailable Unavailable Procedures Procedure Date Office/outpatient Visit, Est Post-op Follow-up Visit Revision Of Eyelid Form Skin Pedicle Flap Office Consultation Office Consultation Advance Directives Directive Yes / No Effective Date File Name No Information Encounters Encounter Description Practice Location Reason(s) For Visit Diagnoses Date Provider Providers Copied on Encounter Office/outpati ent Visit, Est [facility], [address] [place] [address] [address], [place], [place], [id number], [place] tel:[phone] SEC Stephanie Jean-Baptiste No Information 9 [address] [facility], [facility] [place], [address], [place]. tel:[phone] [facility], [address] [place] [address] [address], [place], [place], [address], [place] tel:[phone] SEC Stephanie Jean-Baptiste No Information 200 [address], [facility] [place], [address], [place]. tel:[phone] [facility], [address] [place] [address] [address], [place], [place], [address], [place] tel:[phone] [facility] No Information 9 [address] [facility], [place], [address], [place]. tel:[phone] Referring Provider: Froylan huynh, [address] [place] [address], [address]. tel:[phone] Office Consultation [facility], [address], [place], [place], [address], [place] tel:[phone] [facility] Mon[facility] No Information 9 [address] [facility], [facility] [place], [address], [place]. tel:[phone] Referring Provider: Froylan huynh, [facility] [address], [facility]. tel:[phone] Office Consultation [facility], [address] [facility] [place], [facility] [address], [place], [place], [address], [place] tel:[phone] SEC [facility] No Information 9 Marielle Galeano. [address] [facility] [address], [address], [place]. tel:[phone] Referring Provider: Elaine Gomez OD, [address] [place], [address]. tel:[phone] Family History Family Member Type Diagnosis Age [...]
--- OUTSIDE RECORDS SUMMARY | 2024-05-29 11:23 | XMS_ITS | Clinical Summary ---
Author Organization [facility] [employer] Address [address] [place] [address] Care Team Providers Care Finish Carpenter Name Role Phone Nishant Celaya MD Primary Care Provider [phone] Jose Cabrera MD Unavailable [phone] Source Comments [facility] [employer],non-owned Affiliates and Associated Physician Practices is amultiple site organization consisting of ambulatory clinics and hospital sitesin [place], [place], [place] and [place]. This disclosure is being madepursuant to the Care Everywhere program and may not contain all information available regarding this patient. Last updated 17.[facility] [employer] Allergies No known active allergies Medications * [...] complete this topic MENINGOCOCCAL (Group B) VACCINE SHARED DECISION-MAKING Aged Out No longer eligible based on patient's age to complete this topic MENINGOCOCCAL GROUPS A/C/Y/W VACCINE Aged Out No longer eligible based on patient's age to complete this topic Medical Devices Implanted Type Area Tube Station Attendant Device Identifier Shelf Expiration Date Model / Serial / Lot Cmnt Bone Djo Srg Cblt 40gm Hvisc Strl Implanted:Qty: 1 on 05/28/2019 by Jose Cabrera MD at [facility] Right: Knee [employer] 12/28/2019 600-15-000 / / [id number] Cmpnt Ptlr 31mm 1 Pg Wire Ascnt Arcm Kn Implanted:Qty: 1 on 05/28/2019 by Jose Cabrera MD at [facility] Right: Knee [employer] 03/29/2024 [id number] / / [id number] Tray Tib 71mm Kn Cocr I Beam Implanted:Qty: 1 on 05/28/2019 by Jose Cabrera MD at [facility] Right: Knee [employer] 01/27/2029 [id number] / / [id number] Cmpnt Fem Kn Rt Cr Cmnt Prm Vngrd Intlk Implanted:Qty: 1 on 05/28/2019 by Jose Cabrera MD at [facility] Right: Knee [employer] 01/27/2029 [id number] / / [id number] Brng [id number] Vngrd Arcm Kn Ant Stab Implanted:Qty: 1 on 05/28/2019 by Jose Cabrera MD at [facility] Right: Knee [employer] 02/27/2024 [id number] / / [id number] Brng [id number] Vngrd Arcm Kn Ant Stab Implanted:Qty: 1 on 09/09/2019 by Jose Cabrera MD at [facility] Left: Knee [employer] 12/23/2023 [id number] / / [id number] Cmpnt Fem Kn Lt Cr Cmnt Prm Vngrd Intlk Implanted:Qty: 1 on 09/09/2019 by Jose Cabrera MD at [facility] Left: Knee [employer] 07/07/2029 [id number] / / [id number] Cmnt Bone Djo Srg Cblt 40gm Hvisc Strl Implanted:Qty: 1 on 09/09/2019 by Jose Cabrera MD at [facility] Left: Knee [employer] 06/24/2020 600-15-000 / / [id number] Tray Tib 71mm Kn Cocr I Beam Implanted:Qty: 1 on 09/09/2019 by Jose Cabrera MD at [facility] Left: Knee [employer] 05/06/2029 [id number] / / [id number] Cmpnt Ptlr 28mm 1 Pg Wire Ascnt Arcm Kn Implanted:Qty: 1 on 09/09/2019 by Jose Cabrera MD at [facility] Left: Knee [employer] 08/17/2024 -[id number] / / [id number] Procedures Procedure Name Priority Date/Time Associated Diagnosis Comments BASIC METABOLIC PANEL (CALCIUM TOTAL) Routine 09/10/2019 4:35 AM CDT from Last 3 Months or Most Recently Relevant to Health Maintenance Results * BASIC METABOLIC PANEL (CALCIUM TOTAL) (09/10/2019 4:35 AM CDT) Glucose 104 70 - 105 mg/dL 09/10/2019 6:22 AM CDT [facility] Sodium 137 136 - 145 mmol/L 09/10/2019 6:22 AM CDT [facility] Potassium 4.5 3.5 - 5.1 mmol/L 09/10/2019 6:22 AM CDT [facility] Chloride 101 98 - 107 mmol/L 09/10/2019 6:22 AM CDT [facility] CO2 25 23 - 31 mmol/L 09/10/2019 6:22 AM CDT [facility] Calcium 8.7 8.4 - 10.4 mg/dL 09/10/2019 6:22 AM CDT [facility] Anion Gap 11 8 - 16 mmol/L 09/10/2019 6:22 AM CDT [facility] BUN 20 9.8 - 20.1 mg/dL 09/10/2019 6:22 AM CDT [facility] Creatinine 0.82 0.57 - 1.11 mg/dL 09/10/2019 6:22 AM CDT [facility] eGFR by MDRD >60 >60 mL/min/1.7 3m2 09/10/2019 6:22 AM CDT [facility] eGFR by MDRD >60 >60 mL/min/1.7 3m2 09/10/2019 6:22 AM CDT [facility] Blood BLOOD SPECIMEN / Unknown Venipuncture / Unknown 09/10/2019 4:35 AM CDT 09/10/2019 5:52 AM CDT Jose Cabrera MD LAB - CHEMISTRY [facility] Organization Address City/State/ZIP Co de Phone Number [facility] [address] [place] [address] from Last 3 Months or Most Recently Relevant to Health Maintenance Advance Directives Documents on File Type Date Recorded Patient Assembler Dry Cell And Battery Expl anation Adv Directive/Living Will/POA 06/01/2019 5:48 PM * Full Code (Latest Code Status on File) Date Activated Date Inactivated Comments 09/09/2019 12:26 PM 09/10/2019 12:55 PM * Full Code Date Activated Date Inactivated Comments 05/28/2019 10:33 AM 05/30/2019 1:58 PM Care Teams Finish Carpenter Relationship Specialty Start Date End Date Nishant Celaya MD [address] [place] [address] [phone] PCP - General 12/23/12 [place] [address] [place] [id number] Orthopedic Surgery 01/27/19
== END 2024-05-29 10:20 | disposition home or self-care (01) ==
LOC: ANHAUDIO 10:19
PROVIDERS: PCP Family Medicine; Visit Provider Otolaryngology Otolaryngology/Facial Plastic Surgery
DX: H93.13 Tinnitus, bilateral (principal); H90.3 Sensorineural hearing loss, bilateral
CPT/HCPCS: 92557; 92567

== ENCOUNTER 2024-06-01 08:15 | Outpatient (CLI) | payer MEDICARE, SELFPAY ==
--- NOTE | ~2024-06-01 | DEXA_ITS ---
Bone Density Report Name: EMORY ANDERSEN Age: 68 Sex: Female Ethnicity: White Date of : 1955 Indication: postmenopausal; screening for osteoporosis; hysterectomy; Referring Provider: JEREMY LYNN Study: Bone densitometry was performed. Exam Date: June 01, 2024 Accession number: [id number] Bone Density: Region BMD T-score Z-score Classification AP Spine(L1-L4) 1.053 0.1 2.1 Normal Femoral Neck (Left) 0.845 0.0 1.7 Normal Total Hip (Left) 1.070 1.1 2.5 Normal Femoral Neck (Right) 0.860 0.1 1.8 Normal Total Hip (Right) 1.022 0.7 2.1 Normal Total Hip Mean 1.046 0.9 2.3 Normal World Health Organization criteria for BMD impression classify patients as: Normal (T-score at or above -1.0), Osteopenia (T-score between -1.0 and -2.5), or Osteoporosis (T-score at or below -2.5). 10-year Fracture Risk: FRAX not reported because: All T-scores for Spine Total, Hip Total, Femoral Neck at or above -1.0 Clinical Information Provided by Patient: Has used the following medications: HRT (i.e. estrogen/hormone therapy), Vitamin D, Calcium Has the following medical conditions: Hysterectomy Patient maximum height was 65 Menopause Age: 44 No regular weight bearing exercise Drinks caffeinated beverages Onset of menses at age 11 Number of children 2 Impression: The patient has normal bone mass. Discussion: BONE DENSITY IS ABOVE THE MINIMUM DESIRABLE LEVEL AT ALL SKELETAL SITES TESTED. This patient?s bone mineral density is above the minimum desirable level (T-score -1.0 or better) at all sites measured. The patient should follow a healthful lifestyle (good nutrition with adequate calcium and vitamin D, and appropriate weight-bearing exercise). Follow-Up: Consider repeating this study in 5 years or sooner if there is some new clinical indication. Reported by: ALEXANDR on 06/01/2024 8:45:00 AM. Reviewed, dictated and finalized at location [facility] M [facility]
--- OUTSIDE RECORDS SUMMARY | 2024-06-01 08:29 | XMS_ITS | Clinical Summary ---
Author Organization [facility] [employer] Address [address] [facility] [place] [address] Care Team Providers Care Assistant Football Coach Name Role Phone Nishant Celaya MD Primary Care Provider [phone] Jose Cabrera MD Unavailable [phone] Source Comments [facility] [employer],non-owned Affiliates and Associated Physician Practices is amultiple site organization consisting of ambulatory clinics and hospital sitesin [place], [place], [place] and [place]. This disclosure is being madepursuant to the Care Everywhere program and may not contain all information available regarding this patient. Last updated 17.[facility] [employer] Allergies No known active allergies Medications * [...] this topic Medical Devices Implanted Type Area Software Engineer Backend Device Identifier Shelf Expiration Date Model / Serial / Lot Cmnt Bone Djo Srg Cblt 40gm Hvisc Strl Implanted:Qty: 1 on 05/28/2019 by Jose Cabrera MD at [facility] Right: Knee [employer] 12/28/2019 600-15-000 / / [id number] Cmpnt Ptlr 31mm 1 Pg Wire Ascnt Arcm Kn Implanted:Qty: 1 on 05/28/2019 by Jose Cabrera MD at [facility] Right: Knee [employer] 03/29/2024 [id number] / / [id number] Tray Tib 71mm Kn Cocr I Beam Implanted:Qty: 1 on 05/28/2019 by Jose Cabrera MD at [facility] Right: Knee [employer] 01/27/2029 [id number] / / [id number] Cmpnt Fem Kn Rt Cr Cmnt Prm Vngrd Intlk Implanted:Qty: 1 on 05/28/2019 by Jose Cabrera MD at [facility] Right: Knee [employer] 01/27/2029 [id number] / / [id number] Brng [id number] Vngrd Arcm Kn Ant Stab Implanted:Qty: 1 on 05/28/2019 by Jose Cabrera MD at [facility] Right: Knee [employer] 02/27/2024 [id number] / / [id number] Brng [id number] Vngrd Arcm Kn Ant Stab Implanted:Qty: 1 on 09/09/2019 by Jose Cabrera MD at [facility] Left: Knee [employer] 12/23/2023 [id number] / / [id number] Cmpnt Fem Kn Lt Cr Cmnt Prm Vngrd Intlk Implanted:Qty: 1 on 09/09/2019 by Jose Cabrera MD at [facility] Left: Knee [employer] 07/07/2029 [id number] / / [id number] Cmnt Bone Djo Srg Cblt 40gm Hvisc Strl Implanted:Qty: 1 on 09/09/2019 by Jose Cabrera MD at [facility] Left: Knee [employer] 06/24/2020 600-15-000 / / [id number] Tray Tib 71mm Kn Cocr I Beam Implanted:Qty: 1 on 09/09/2019 by Jose Cabrera MD at [facility] Left: Knee [employer] 05/06/2029 [id number] / / [id number] Cmpnt Ptlr 28mm 1 Pg Wire Ascnt Arcm Kn Implanted:Qty: 1 on 09/09/2019 by Jose Cabrera MD at [facility] Left: Knee [employer] 08/17/2024 -[id number] / / [id number] Procedures Procedure Name Priority Date/Time Associated Diagnosis [...] - 31 mmol/L 09/10/2019 6:22 AM CDT [facility] Calcium 8.7 8.4 - 10.4 mg/dL [...] >60 mL/min/1.7 3m2 09/10/2019 6:22 AM CDT [facility] Blood BLOOD SPECIMEN / Unknown Venipuncture / Unknown 09/10/2019 4:35 AM CDT 09/10/2019 5:52 AM CDT Jose Cabrera MD LAB - CHEMISTRY [facility] Organization Address City/State/ZIP Co de Phone Number [facility] [address] [place] [address] from Last 3 Months or Most Recently Relevant to Health Maintenance Advance Directives Documents on File Type Date Recorded Patient Latent Print Examiner Expl anation Adv Directive/Living Will/POA 06/01/2019 5:48 PM * Full Code (Latest Code Status on File) Date Activated Date Inactivated Comments 09/09/2019 12:26 PM 09/10/2019 12:55 PM * Full Code Date Activated Date Inactivated Comments 05/28/2019 10:33 AM 05/30/2019 1:58 PM Care Teams Assistant Football Coach Relationship Specialty Start Date End Date Nishant Celaya MD [address] [place] [address] [phone] PCP - General 12/23/12 [place] [address] [place] [id number] Orthopedic Surgery 01/27/19
--- OUTSIDE RECORDS SUMMARY | 2024-06-01 08:29 | XMS_ITS | Continuity of Care Document ---
Author Organization [facility] Address [address] [place] [address] Phone Care Team Providers Care Sheet Metal Duct Installer Helper Name Role Phone Shaq Jackson MD Unavailable Unavailable Procedures Procedure Date Office/outpatient Visit, Est Post-op Follow-up Visit Revision Of Eyelid Form Skin Pedicle Flap Office Consultation Office Consultation Advance Directives Directive Yes / No Effective Date File Name No Information Encounters Encounter Description Practice Location Reason(s) For Visit Diagnoses Date Provider Providers Copied on Encounter Office/outpati ent Visit, Est [facility], [address] [place] [address] [address], [place], [place], [id number], [place] tel:[phone] SEC Stephanie Jean-Baptiste No Information [address] [facility], [facility] [place], [id number], [place]. tel:[phone] [facility], [address] [place] [address] [address], [place], [place], [id number], [place] tel:[phone] SEC Stephanie Jean-Baptiste No Information [address] [facility], [facility] [place], [id number], [place]. tel:[phone] [facility], [address] [place] [address] [address], [place], [place], [id number], [place] tel:[phone] [facility] No Information 9 [address] [facility], [address] [place], [id number], [place]. tel:[phone] Referring Provider: Froylan huynh, [address] [place] [address], [address]. tel:[phone] Office Consultation [facility], [address], [place], [place], [id number], [place] tel:[phone] [address] [facility] No Information [address], [facility] [place], [id number], [place]. tel:[phone] Referring Provider: Froylan huynh, [facility] [address], [facility]. tel:[phone] [facility]ation [facility], [address], [place], [place], [id number], [place] tel:[phone] SEC [facility] No Information 9 Marielle Galeano. [address] [facility] [address], [address], [place]. tel:[phone] Referring Provider: Elaine Gomez OD, [address] [place], [address]. tel:[phone] Family History Family Member Type Diagnosis Age [...]
== END 2024-06-01 08:16 | disposition home or self-care (01) ==
LOC: ANHIMG 08:16
PROVIDERS: PCP Family Medicine; Visit Provider Nurse Practitioner Family
DX: Z78.0 Asymptomatic menopausal state (principal)
CPT/HCPCS: 77080